=== PATIENT | female | born 1990 | race Caucasian/White ===

== ENCOUNTER 2017-11-02 23:47 | Emergency (ER) | END 2017-11-03 04:19 | disposition home or self-care (01) ==

== ENCOUNTER 2018-03-22 14:29 | Emergency (ER) | payer MEDICAID ==
[~2018-03-22] VITALS: Ht 160 cm; Wt 93.4 kg
[~2018-03-22 14:29] MED LIST: ACET1TAB40 PO; NAPR-985 PO; ONDA4TAB14 PO
[2018-03-22 14:34] VITALS: Ht 160 cm; Wt 93.4 kg
--- NOTE | 2018-03-22 18:13 | ERD ---
ER Documentation Chief Complaint Chief Complaint c/o cough and chest congestion x1 week, cwp upon coughing HPI 28-year-old female, previously healthy, presents to the emergency department, complaining of 1 week with respiratory symptoms that are getting worse during the last 2 days including fever, productive cough, chest congestion and general malaise. The patient has been taking [id number] medication without improvement of the symptoms. ROS All systems reviewed and are negative except as per history of present illness. Medications Home Meds Active Scripts Benzonatate* (Tessalon Perle*) 100 Mg Capsule, 100 MG PO Q8H PRN for COUGH, #15 CAP Prov:LAKESHA MCGOVERN MD 03/22/18 Inhaler, Assist Devices (Compact Space Chamber) 1 Each Spacer, EACH MC QID PRN for COUGH, #1 Prov:LAKESHA MCGOVERN MD 03/22/18 Albuterol Sulfate* (Proair HFA*) 8.5 Gm Hfa.aer.ad, 2 PUFF INH Q4H PRN for WHEEZING AND SOB, #1 INHALER Prov:LAKESHA MCGOVERN MD 03/22/18 Azithromycin* (Zithromax*) 250 Mg Tablet, 250 MG PO .ZPACK DIRECTED, #6 TAB TAKE 500 MG (2 TABS) THE FIRST DAY THEN 250 MG (1 TAB) DAYS 2-5 Prov:LAKESHA MCGOVERN MD 03/22/18 Amoxicillin* (Amoxicillin*) 500 Mg Cap, 500 MG PO TID for 10 Days, CAP Prov:LAKESHA MCGOVERN MD 03/22/18 Ondansetron (Ondansetron Odt) 4 Mg Tab.rapdis, 4 MG PO Q6H PRN for NAUSEA AND/OR VOMITING, #10 TAB Prov:DESIREE,AURORA 11/03/17 Acetaminophen with Codeine (Acetaminophen-Cod #3 Tablet) 1 Each Tablet, 1 TAB PO Q6H PRN for PAIN, #12 TAB Prov:DESIREE,AURORA 11/03/17 Naproxen* (Naprosyn*) 500 Mg Tablet, 500 MG PO BID PRN for PAIN AND/OR INFLAMMATION, #30 TAB Prov:DESIREE,AURORA 11/03/17 Allergies Allergies: Coded Allergies: nitrofurantoin (Verified Allergy, Unknown, 11/02/17) PMhx/Soc Medical and Surgical Hx: pt denies Medical Hx, pt denies Surgical Hx Hx Alcohol Use: No Hx Substance Use: No Hx Tobacco Use: No Smoking Status: Never smoker FmHx Family History: No diabetes, No coronary disease Physical Exam Vitals Vital Signs Date Temp Pulse Resp B/P (MAP) Pulse Ox O2 O2 Flow FiO2 Time Delivery Rate 03/22/18 99.2 112 20 127/63 99 14:34 (84) Physical Exam Const: Febrile but no acute distress Head: Atraumatic Eyes: Normal Conjunctiva ENT: Erythematous oropharynx. Normal External Ears, Nose and Mouth. Neck: Full range of motion. No meningismus. Resp: Coarse respiratory sounds to auscultation bilaterally Cardio: Regular rate and rhythm, no murmurs Abd: Soft, non tender, non distended. Normal bowel sounds Skin: No petechiae or rashes Back: No midline or flank tenderness Ext: No cyanosis, or edema Neur: Awake and alert Psych: Normal Mood and Affect Procedures/MDM Vital signs stable, no respiratory distress. Differential diagnosis include but not limited to: Respiratory infection bacterial/viral/fungal. Croup, bronchiolitis, pneumonitis, allergies, GERD. Less likely foreign body aspiration, cardiac related. Physical examination and clinical presentation consistent most likely with viral infection with early superimposed bacterial infection. During the ED course the patient remained stable, no new complaints. Treatment options and clinical impression discussed with the patient who agrees with management. The patient is stable to be treated outpatient and will be discharged home with a Rx for amoxicillin, pro-air and Tessalon Perls Some side effects of prescribed medications (headache, rash, nausea, vomiting, diarrhea, interactions with other medications) were reviewed. The patient needs to follow up with the primary care provider in the next 48h. If symptoms persist, worsen or new symptoms develop, then patient should return to the ED immediately. Disclaimer: Inadvertent spelling and grammatical errors are likely due to EHR/dictation software use and do not reflect on the overall quality of patient care. Also, please note that the electronic time recorded on this note does not necessarily reflect the actual time of the patient encounter. Departure Diagnosis: Primary Impression: Cough Additional Impression: Superimposed infection Condition: Stable Additional Instructions: Thank you very much for allowing us to participate in your care. Your health and safety is our top priority at [facility]. Call your primary care doctor TOMORROW for an appointment during the next 2-4 days and bring all the information and medications prescribed. Have prescriptions filled and follow precisely the directions on the label. If the symptoms get worse and your provider is unavailable, return to the Emergency Department immediately. LAKESHA MCGOVERN MD Mar 22, 2018 18:13
[2018-03-22] MEDS ORDERED: ALBU8.5H8 INH (18:15)
[2018-03-22] MEDS ORDERED: AZIT250T PO (18:15)
[2018-03-22] MEDS ORDERED: BENZ-6 PO (18:15)
[2018-03-22] MEDS ORDERED: AMOX500C2 PO (18:15)
[2018-03-22] MEDS ORDERED: INHA-3 MC (18:15)
== END 2018-03-22 18:34 | disposition home or self-care (01) ==
LOC: FTE 14:29
DX: A49.9 Bacterial infection, unspecified (principal)
CPT/HCPCS: 99283